=== PATIENT | male | born 1985 | race Caucasian/White ===

== ENCOUNTER 2016-05-23 07:43 | Emergency (ER) | payer OTHER ==
[~2016-05-23] VITALS: Ht 172.7 cm; Wt 77.1 kg
[2016-05-23 08:34] LABS: ABSOLUTE BASOPHIL COUNT 0 /CUMM (0.0-0.2); ABSOLUTE EOSINOPHIL COUNT 0.1 /CUMM (0.0-0.7); ABSOLUTE GRANULOCYTE CT 3.9 /CUMM (1.4-6.5); ABSOLUTE LYMPH COUNT 1.8 /CUMM (1.2-3.4); ABSOLUTE MONOCYTE COUNT 0.5 /CUMM (0.10-0.60); BASOPHIL % 0.4 % (0.0-2.0); GRANULOCYTE % 60.7 % (42.2-75.2); HEMATOCRIT 46.2 % (42-52); MEAN CORPUSCULAR HGB 27.9 PG (27.0-31.0); MEAN CORPUSCULAR HGB CONC 32.8 G/DL (33.0-37.0); MEAN CORPUSCULAR VOLUME 85.1 FL (80.0-94.0); MEAN PLATELET VOLUME 10.5 FL (7.4-10.4); PLATELET COUNT 144 /CUMM (130-400); RBC DISTRIBUTION WIDTH 13.7 % (11.5-14.5); RED BLOOD CELL CT 5.42 /CUMM (4.70-6.10); WHITE BLOOD CELL COUNT 6.4 /CUMM (4.8-10.8)
--- NOTE | 2016-05-23 08:40 | ED GI/GU/ABDOMINAL COMPLAINT ---
History of Present Illness General Chief Complaint: Abdominal Pain/Flank Pain Stated Complaint: RT FLANK NAOMI HX KIDNEYSTONES Source: patient, old records, friend Exam Limitations: no limitations Vital Signs & Intake/Output Vital Signs & Intake/Output Vital Signs Date Time Temp Pulse Resp B/P Pulse O2 O2 Flow FiO2 Ox Delivery Rate 05/23 0746 97.0 60 20 125/84 100 Room Air Allergies Coded Allergies: Penicillins (HIVES 05/23/16) Reconcile Medications No Known Home Medications Triage Note: PT TO ED C/O "I THINK I HAVE A KIDNEY STONE". C/O RIGHT FLANK PAIN X A FEW DAYS, WORSE THIS AM. STATES HE PASSED A STONE ON SATURDAY. WAS SEEN AT AN ER IN [place] AND TOLD HE HAD A FEW STONES. DENIES N/V/D. Triage Nurses Notes Reviewed? yes Onset: Last week Duration: day(s):, continues in ED, intermittent Timing: recent history Quality/Severity: aching, moderate, sharpness Location: right flank Radiation: scrotal Activities at Onset: sleep Prior Abdominal Problems: similar symptoms Past Sexual History: Unobtainable at this time Associated Symptoms: abdominal pain, loss of appetite, nausea/vomiting HPI: 5 days prior to admission patient complained of recurrent right flank pain similar to previous kidney stone pain described as sharp moderate to severe waxing and waning radiating to his groin associated with nausea vomiting. He reports being seen at another hospital with 2 right-sided kidney stones on CT scan and passed one in the emergency department. Prior to admission he awoke with recurrent pain not as severe associated with nausea. He denies fever chills vomiting diarrhea chest pain cough shortness of breath headache dysuria rash bleeding. Past History Travel History Traveled to [place] past 21 day No Medical History Any Pertinent Medical History? see below for history Renal: nephrolithiasis Surgical History Surgical History: non-contributory Psychosocial History What is your primary language [place] Tobacco Use: Quit >30 days ago ETOH Use: denies use Illicit Drug Use: denies illicit drug use Family History Hx Contributory? No Review of Systems Review of Systems Constitutional: Reports: no symptoms. EENTM: Reports: no symptoms. Respiratory: Reports: no symptoms. Cardiovascular: Reports: no symptoms. GI: Reports: see HPI, nausea. Genitourinary: Reports: see HPI, pain. Musculoskeletal: Reports: no symptoms. Skin: Reports: no symptoms. Neurological/Psychological: Reports: no symptoms. Hematologic/Endocrine: Reports: no symptoms. Immunologic/Allergic: Reports: no symptoms. All Other Systems: Reviewed and Negative Physical Exam Physical Exam General Appearance: well developed/nourished, alert, awake, anxious, mild distress, thin Head: atraumatic, normal appearance Eyes: Bilateral: normal appearance, PERRL, EOMI, normal inspection. Ears, Nose, Throat, Mouth: hearing grossly normal, moist mucous membrane Neck: normal inspection, supple, full range of motion, normal alignment Respiratory: normal breath sounds, chest non-tender, no respiratory distress, quiet respiration, lungs clear Cardiovascular: regular rate/rhythm, normal peripheral pulses, norml femoral pulses equa Peripheral Pulses: 4+ carotid (R), 4+ carotid (L) Gastrointestinal: normal bowel sounds, soft, non-tender, no organomegaly Male Genitals: normal genitalia Back: normal inspection, normal range of motion Extremities: normal range of motion, no ligament instability Neurologic/Psych: no motor/sensory deficits, awake, alert, oriented x 3, normal gait, normal mood/affect Skin: intact, normal color, warm/dry Core Measures ACS in differential dx? No Severe Sepsis Present: No Septic Shock Present: No Progress Differential Diagnosis: appendicitis, biliary colic, pyelonephritis, ureterolithiasis, UTI/pyelo Plan of Care: Orders Procedure Date/time Status URINALYSIS 05/24 815 Complete COMPREHENSIVE METABOLIC PANEL 05/24 815 Complete CBC WITHOUT DIFFERENTIAL 05/24 815 Complete Laboratory Tests 05/23/16 0920: Urine Color YEL, Urine Clarity CLEAR, Urine pH 6.5, Ur Specific [place] 1.010, Urine Protein NEG, Urine Ketones NEG, Urine Nitrite NEG, Urine Bilirubin NEG, Urine Urobilinogen 0.2, Ur Leukocyte Esterase NEG, Ur Microscopic SEDIMENT EXAMINED, Urine RBC 1-3, Urine WBC 1-3 H, Ur Epithelial Cells RARE, Urine Bacteria FEW H, Urine Mucus FEW, Urine Hemoglobin SMALL H, Urine Glucose NEG 05/23/16 0820: Anion Gap 10, Estimated GFR > 60, BUN/Creatinine Ratio 14.3, Glucose 101 H, Calcium 10.2, Total Bilirubin 0.7, AST 27, ALT 36, Alkaline Phosphatase 61, Total Protein 7.1, Albumin 4.5, Globulin 2.6, Albumin/Globulin Ratio 1.7, CBC w Diff NO MAN DIFF REQ, RBC 5.42, MCV 85.1, MCH 27.9, RDW 13.7, MPV 10.5 H, Gran % 60.7, Lymphocytes % 28.7, Monocytes % 8.2, Eosinophils % 2.0, Basophils % 0.4, Absolute Granulocytes 3.9, Absolute Lymphocytes 1.8, Absolute Monocytes 0.5, Absolute Eosinophils 0.1, Absolute Basophils 0, PUBS MCHC 32.8 L Initial ED EKG: none Departure Departure Time of Disposition: 944 Disposition: HOME OR SELF CARE Condition: Stable Clinical Impression Primary Impression: Renal colic on right side Referrals: DANYEL REBOLLAR,[place] Call for urology follow up Departure Forms: Customer Survey General Discharge Information Prescriptions: Current Visit Scripts Ibuprofen 1 TAB PO Q6PRN PRN pain #50 TAB with food Ondansetron (Zofran Odt) 1 TAB SL TID PRN nausea #15 TAB Tamsulosin HCl (Flomax) 1 CAP PO DAILY #15 CAP Tramadol HCl (Ultram) 1-2 TAB PO Q6PRN PRN severe pain #30 TAB
[2016-05-23] MEDS ORDERED: FLOMAX0.4 M1 PO (09:47)
[2016-05-23] MEDS ORDERED: ULTRAM50 M1 PO (09:47)
[2016-05-23] MEDS ORDERED: IBUPROFEN600 M1 PO (09:47)
[2016-05-23] MEDS ORDERED: ZOFRAN ODT4 M1 SL (09:47)
[2016-05-23 09:55] VITALS: BP 112/72
== END 2016-05-23 09:56 ==
LOC: ERH 07:43
PROVIDERS: Emergency Medicine
DX: N23 Unspecified renal colic (principal)
CPT/HCPCS: 81001; 96361; 96374; 96375; J1885; J2405